=== PATIENT | male | born 1970 ===

== ENCOUNTER → 2016-03-07 | Outpatient (CLI) | payer OTHER ==
[2016-03-07 15:24] LABS: Basophils # (auto) 0 uL; Basophils % (auto) 0.5 % (0.0-2.0); Eosinophils # (auto) 0.3 uL; Eosinophils % (auto) 5.2 % (0.0-7.0); Hematocrit 43.9 % (41.0-53.0); Hemoglobin 14.8 g/dL (13.5-17.5); Lymphocytes # (auto) 1.6 uL; Lymphocytes % (auto) 31.3 % (10.0-50.0); Mean Corpuscular Hemoglobin 30.1 pg (28.0-32.0); Mean Corpuscular Hgb Conc. 33.7 g/dL (32.0-36.0); Mean Corpuscular Volume 89.3 fL (80.0-100.0); Monocytes # (auto) 0.4 uL; Monocytes % (auto) 7.1 % (0.0-12.0); Neutrophils # (auto) 2.9 uL; Neutrophils % (auto) 55.9 % (37.0-80.0); Platelet Count (auto) 268 10^3/uL (140-450); Red Cell Distribution Width 12.5 % (11.6-16.0); White Blood Cell 5.2 10^3/uL (4.4-10.8)
[2016-03-07 15:33] LABS: Albumin 4.2 g/dL (3.4-5.0); BUN/Creatinine Ratio 11.3; Bilirubin, Total 0.8 mg/dL (0.2-1.0); Calcium 8.5 mg/dL (8.5-10.1); Total Protein 7.9 g/dL (6.4-8.2); Uric Acid 6.8 mg/dL (3.5-7.2)
== END | disposition home or self-care (01) ==
LOC: LAB 13:56
DX: M10.00 Idiopathic gout, unspecified site (principal); M25.50 Pain in unspecified joint; Z79.899 Other long term (current) drug therapy; M32.10 Systemic lupus erythematosus, organ or system involvement unspecified; M45.0 Ankylosing spondylitis of multiple sites in spine; D64.9 Anemia, unspecified; I10 Essential (primary) hypertension; M06.9 Rheumatoid arthritis, unspecified
CPT/HCPCS: 36415; 80053; 84550; 85025; 85049; 85652; 86038; 86141; 86200; 86431; 86812